=== PATIENT | male | born 1965 | race Native Hawaiian/Other Pacific Islander ===

== ENCOUNTER 2016-05-30 18:14 | Emergency (ER) | payer OTHER ==
[~2016-05-30] VITALS: Ht 170.2 cm; Wt 95.3 kg
[2016-05-30 20:24] VITALS: BP 158/78; TEMP 98.5
== END 2016-05-30 20:24 | disposition home or self-care (01) ==
LOC: ED 18:14
DX: S70.01XA Contusion of right hip, initial encounter (principal); S43.491A Other sprain of right shoulder joint, initial encounter; S40.011A Contusion of right shoulder, initial encounter; S20.211A Contusion of right front wall of thorax, initial encounter; W11.XXXA Fall on and from ladder, initial encounter; Y92.098 Other place in other non-institutional residence as the place of occurrence of the external cause
CPT/HCPCS: 96372; 99283; J2175

== ENCOUNTER 2016-06-28 12:19 | Emergency (ER) | payer OTHER ==
[~2016-06-28] VITALS: Ht 170.2 cm; Wt 93.0 kg
[2016-06-28 12:21] VITALS: TEMP 98
[2016-06-28 12:42] LABS: PLATELET COUNT 287 K/uL (142-355)
[2016-06-28 12:53] LABS: POTASSIUM 3.8 mmol/L (3.6-5.2); SODIUM 133 mmol/L (136-145)
[2016-06-28 13:25] VITALS: BP 123/73
== END 2016-06-28 13:25 | disposition home or self-care (01) ==
LOC: ED 12:19
DX: S20.222A Contusion of left back wall of thorax, initial encounter (principal); S20.221A Contusion of right back wall of thorax, initial encounter; S30.0XXA Contusion of lower back and pelvis, initial encounter; M47.897 Other spondylosis, lumbosacral region; W31.89XA Contact with other specified machinery, initial encounter; Y92.89 Other specified places as the place of occurrence of the external cause
CPT/HCPCS: 36415; 80053; 83880; 85027; 96374; 96375; 99284; J1885; J2175; J2405

== ENCOUNTER 2016-07-05 11:23 | Emergency (ER) | payer OTHER ==
[~2016-07-05] VITALS: Ht 170.2 cm; Wt 93.0 kg
[2016-07-05 11:32] VITALS: TEMP 98.3
[2016-07-05 13:30] VITALS: BP 130/89
== END 2016-07-05 13:30 | disposition home or self-care (01) ==
LOC: ED 11:23
PROC: 2W38XYZ Immobilization of Right Upper Extremity using Other Device (ICD-10-PCS; principal; 2016-07-05)
DX: S46.811A Strain of other muscles, fascia and tendons at shoulder and upper arm level, right arm, initial encounter (principal); S76.011A Strain of muscle, fascia and tendon of right hip, initial encounter; W17.2XXA Fall into hole, initial encounter; Y93.H9 Activity, other involving exterior property and land maintenance, building and construction; Y92.098 Other place in other non-institutional residence as the place of occurrence of the external cause; Y99.8 Other external cause status
CPT/HCPCS: 96372; 99283; J1885

== ENCOUNTER 2016-07-21 09:32 | Outpatient (CLI) | payer OTHER ==
[2016-07-21 09:55] LABS: POTASSIUM 4.6 mmol/L (3.6-5.2); SODIUM 139 mmol/L (136-145)
== END 2016-07-21 19:05 | disposition home or self-care (01) ==
LOC: LABW 09:32
PROVIDERS: Orthopaedic Surgery
DX: Z01.812 Encounter for preprocedural laboratory examination (principal)
CPT/HCPCS: 36415; 80053

== ENCOUNTER 2016-09-24 17:23 | Emergency (ER) | payer OTHER ==
[~2016-09-24] VITALS: Ht 170.2 cm; Wt 96.2 kg
[2016-09-24 19:35] VITALS: BP 134/87; TEMP 98.4
== END 2016-09-24 19:35 | disposition home or self-care (01) ==
LOC: ED 17:23
DX: M54.2 Cervicalgia (principal); R51 Headache
CPT/HCPCS: 99282

== ENCOUNTER 2016-10-09 12:16 | Emergency (ER) | payer OTHER ==
[~2016-10-09] VITALS: Ht 172.7 cm; Wt 95.3 kg
[2016-10-09 13:40] LABS: PLATELET COUNT 284 K/uL (142-355)
[2016-10-09 13:47] LABS: POTASSIUM 3.8 mmol/L (3.6-5.2); SODIUM 137 mmol/L (136-145)
[2016-10-09 16:39] VITALS: BP 138/90; TEMP 98.7
== END 2016-10-09 16:42 | disposition home or self-care (01) ==
LOC: ED 12:16
PROVIDERS: Specialist
DX: N45.1 Epididymitis (principal); R10.13 Epigastric pain
CPT/HCPCS: 80053; 81000; 82150; 83690; 85027; 96374; 96375; 99284; J1170; J2550

== ENCOUNTER 2016-10-23 10:41 | Emergency (ER) | payer OTHER ==
[~2016-10-23] VITALS: Ht 170.2 cm; Wt 95.3 kg
[2016-10-23 11:04] VITALS: TEMP 98.4
[2016-10-23 11:16] LABS: PLATELET COUNT 323 K/uL (142-355)
[2016-10-23 11:33] LABS: POTASSIUM 3.7 mmol/L (3.6-5.2); SODIUM 135 mmol/L (136-145)
[2016-10-23 13:23] VITALS: BP 132/88
== END 2016-10-23 13:24 | disposition home or self-care (01) ==
LOC: ED 10:41
DX: R07.89 Other chest pain (principal); R51 Headache
CPT/HCPCS: 36415; 80053; 82550; 84484; 85027; 93005; 99283; J1885

== ENCOUNTER 2016-11-29 10:36 | Outpatient (CLI) | payer OTHER ==
[2016-11-29 11:17] LABS: POTASSIUM 3.8 mmol/L (3.6-5.2); SODIUM 134 mmol/L (136-145)
[2016-11-29 11:26] LABS: PLATELET COUNT 247 K/uL (142-355)
== END 2016-11-29 19:02 | disposition home or self-care (01) ==
LOC: LABW 10:36
PROVIDERS: Nurse Practitioner Family
DX: Z79.899 Other long term (current) drug therapy (principal); Z51.81 Encounter for therapeutic drug level monitoring; L40.0 Psoriasis vulgaris; R21 Rash and other nonspecific skin eruption
CPT/HCPCS: 36415; 80053; 80074; 85027

== ENCOUNTER 2017-04-15 12:42 | Emergency (ER) | payer OTHER ==
[~2017-04-15] VITALS: Ht 170.2 cm; Wt 93.0 kg
[2017-04-15 13:47] VITALS: TEMP 98
[2017-04-15 15:18] LABS: PLATELET COUNT 322 K/uL (142-355)
[2017-04-15 16:32] LABS: POTASSIUM 3.9 mmol/L (3.6-5.2)
[2017-04-15 18:45] VITALS: BP 148/103
== END 2017-04-15 19:08 | disposition home or self-care (01) ==
LOC: ED 12:42
DX: R22.1 Localized swelling, mass and lump, neck (principal); Z98.890 Other specified postprocedural states
CPT/HCPCS: 36415; 80053; 85027; 96374; 99284; J2930; Q9963

== ENCOUNTER 2017-08-01 16:37 | Outpatient (CLI) | payer OTHER ==
[2017-08-01 17:46] LABS: POTASSIUM 3.5 mmol/L (3.6-5.2)
== END 2017-08-01 20:02 | disposition home or self-care (01) ==
LOC: LABW 16:37
PROVIDERS: Family Medicine
DX: I10 Essential (primary) hypertension (principal); E78.4 Other hyperlipidemia; I25.10 Atherosclerotic heart disease of native coronary artery without angina pectoris; E11.9 Type 2 diabetes mellitus without complications; Z79.899 Other long term (current) drug therapy; Z51.81 Encounter for therapeutic drug level monitoring
CPT/HCPCS: 36415; 80053; 80061

== ENCOUNTER 2017-10-24 20:20 | Emergency (ER) | payer OTHER ==
[2017-10-24] MEDS ORDERED: CLONAZEP ODT0.25 MG PO (20:53)
[2017-10-24] MEDS ORDERED: AMBIEN5 MG PO (20:54)
[2017-10-24] MEDS ORDERED: METF100038 PO (20:55)
[2017-10-24] MEDS ORDERED: PROZAC10 MG PO (20:55)
[2017-10-24] MEDS ORDERED: AMLO2.5T PO (20:55)
[2017-10-24 22:39] LABS: PLATELET COUNT 261 K/uL (142-355)
[2017-10-24 22:47] LABS: POTASSIUM 3.5 mmol/L (3.6-5.2)
[2017-10-25 07:52] VITALS: BP 143/88; TEMP 98
== END 2017-10-25 09:50 | disposition short-term general hospital (02) ==
LOC: ED 20:20
PROVIDERS: Internal Medicine
DX: R45.851 Suicidal ideations (principal)
CPT/HCPCS: 36415; 80053; 80307; 80320; 80329; 81000; 85027; 93005; 96374; 99285; J3490

== ENCOUNTER 2018-01-27 13:03 | Emergency (ER) | payer OTHER ==
[~2018-01-27] VITALS: Ht 170.2 cm; Wt 93.0 kg
[~2018-01-27 13:03] MED LIST: AMBIEN5 MG PO; AMLO2.5T PO; CLONAZEP ODT0.25 MG PO; METF100038 PO; PROZAC10 MG PO
[2018-01-27 14:05] LABS: PLATELET COUNT 312 K/uL (142-355)
[2018-01-27 14:15] LABS: POTASSIUM 3.9 mmol/L (3.6-5.2)
[2018-01-27 16:34] VITALS: BP 145/84; TEMP 98
== END 2018-01-27 16:36 | disposition home or self-care (01) ==
LOC: ED 13:03
DX: N20.0 Calculus of kidney (principal); N39.0 Urinary tract infection, site not specified
CPT/HCPCS: 36415; 80053; 81000; 83605; 84484; 85027; 87086; 87088; 96365; 96374; 96375; 99284; J1170; J2175; J2405; J2550; J7120

== ENCOUNTER 2018-04-12 04:59 | Emergency (ER) | payer OTHER ==
[~2018-04-12] VITALS: Ht 170.2 cm; Wt 93.0 kg
[2018-04-12 05:10] VITALS: TEMP 98.1
[2018-04-12 05:29] LABS: PLATELET COUNT 316 K/uL (142-355)
[2018-04-12 05:41] LABS: POTASSIUM 3.5 mmol/L (3.6-5.2)
[2018-04-12 07:52] VITALS: BP 128/89
== END 2018-04-12 07:53 | disposition home or self-care (01) ==
LOC: ED 04:59
PROVIDERS: Emergency Medicine
DX: N20.1 Calculus of ureter (principal)
CPT/HCPCS: 36415; 80053; 81000; 85027; 96365; 96374; 99284; J2175; J2405; J3490

== ENCOUNTER 2018-05-10 12:35 | Outpatient (CLI) | payer OTHER ==
[2018-05-10 13:07] LABS: PLATELET COUNT 277 K/uL (142-355)
[2018-05-10 13:26] LABS: POTASSIUM 3.8 mmol/L (3.6-5.2)
== END 2018-05-10 20:38 | disposition home or self-care (01) ==
LOC: LABW 12:35
PROVIDERS: Nurse Practitioner Family
DX: Z79.899 Other long term (current) drug therapy (principal)
CPT/HCPCS: 36415; 80053; 80074; 85027; 86480

== ENCOUNTER 2018-09-21 13:31 | Outpatient (CLI) | payer OTHER ==
[2018-09-21 13:47] LABS: PLATELET COUNT 309 K/uL (142-355)
[2018-09-21 14:16] LABS: POTASSIUM 4.1 mmol/L (3.6-5.2)
== END 2018-09-21 19:10 | disposition home or self-care (01) ==
LOC: LABW 13:31
PROVIDERS: Physician Assistant Medical
DX: M75.21 Bicipital tendinitis, right shoulder (principal)
CPT/HCPCS: 36415; 80053; 85027; 85651; 86038; 86140

== ENCOUNTER 2018-12-21 14:30 | Outpatient (CLI) | payer OTHER ==
[2018-12-21 14:49] LABS: PLATELET COUNT 311 K/uL (142-355)
[2018-12-21 14:58] LABS: POTASSIUM 4.5 mmol/L (3.6-5.2)
== END 2018-12-21 22:27 | disposition home or self-care (01) ==
LOC: LABW 14:30
PROVIDERS: Nurse Practitioner Family
DX: L40.0 Psoriasis vulgaris (principal); Z79.899 Other long term (current) drug therapy
CPT/HCPCS: 36415; 80053; 85027

== ENCOUNTER 2019-05-07 14:05 | Outpatient (CLI) | payer OTHER | END 2019-05-07 20:12 | disposition home or self-care (01) | LOC: RAD 14:05 | DX: Z79.899 Other long term (current) drug therapy (principal) ==

== ENCOUNTER 2020-02-10 12:40 | Outpatient (CLI) | payer OTHER ==
[2020-02-10 13:02] LABS: PLATELET COUNT 285 K/uL (142-355)
[2020-02-10 13:09] LABS: POTASSIUM 4.7 mmol/L (3.6-5.2)
== END 2020-02-10 23:20 | disposition home or self-care (01) ==
LOC: LABW 12:40
PROVIDERS: ATTEND Nurse Practitioner Family
DX: Z79.899 Other long term (current) drug therapy (principal); L40.0 Psoriasis vulgaris
CPT/HCPCS: 36415; 80053; 85027

== ENCOUNTER 2020-07-07 08:54 | Outpatient (CLI) | payer OTHER ==
[2020-07-07 09:23] LABS: POTASSIUM 4.7 mmol/L (3.6-5.2)
[2020-07-07 09:25] LABS: PLATELET COUNT 301 K/uL (142-355)
== END 2020-07-07 21:07 | disposition home or self-care (01) ==
LOC: LABW 08:54
PROVIDERS: ATTEND Nurse Practitioner Family
DX: Z79.899 Other long term (current) drug therapy (principal); L40.0 Psoriasis vulgaris
CPT/HCPCS: 36415; 80053; 80074; 85027; 86480

== ENCOUNTER 2020-11-17 13:09 | Outpatient (CLI) | payer OTHER ==
[2020-11-17 13:27] LABS: PLATELET COUNT 266 K/uL (142-355)
[2020-11-17 13:37] LABS: POTASSIUM 4.3 mmol/L (3.6-5.2)
== END 2020-11-17 22:15 | disposition home or self-care (01) ==
LOC: LABW 13:09
PROVIDERS: ATTEND Nurse Practitioner Family
DX: L40.0 Psoriasis vulgaris (principal); L81.0 Postinflammatory hyperpigmentation; Z79.899 Other long term (current) drug therapy
CPT/HCPCS: 36415; 80053; 85027

== ENCOUNTER 2021-03-12 08:46 | Emergency (ER) | payer OTHER ==
[~2021-03-12] VITALS: Ht 170.2 cm; Wt 93.0 kg
[2021-03-12 08:57] VITALS: TEMP 97.1
[2021-03-12 09:53] VITALS: BP 156/88
== END 2021-03-12 09:54 | disposition home or self-care (01) ==
LOC: ED 08:46
DX: L27.0 Generalized skin eruption due to drugs and medicaments taken internally (principal); L50.8 Other urticaria; T50.995A Adverse effect of other drugs, medicaments and biological substances, initial encounter; Y92.89 Other specified places as the place of occurrence of the external cause
CPT/HCPCS: 96372; 99283; J2930; J3410

== ENCOUNTER 2021-09-07 09:21 | Outpatient (CLI) | payer OTHER | END 2021-09-07 18:57 | disposition home or self-care (01) | LOC: RAD 09:21 | PROVIDERS: ATTEND Physician Assistant | DX: M79.672 Pain in left foot (principal); M25.532 Pain in left wrist ==

== ENCOUNTER 2021-09-14 03:22 | Emergency (ER) | payer OTHER ==
[~2021-09-14] VITALS: Ht 170.2 cm; Wt 93.0 kg
[2021-09-14 04:00] LABS: PLATELET COUNT 322 K/uL (142-355)
[2021-09-14 04:05] LABS: POTASSIUM 4.2 mmol/L (3.6-5.2)
[2021-09-14 06:15] VITALS: BP 146/83; TEMP 98.7
== END 2021-09-14 06:15 | disposition home or self-care (01) ==
LOC: ED 03:22
PROVIDERS: Emergency Medicine Emergency Medical Services
DX: R10.31 Right lower quadrant pain (principal)
CPT/HCPCS: 36415; 80053; 81002; 82150; 83690; 85027; 96360; 96374; 96375; 99283; J1170; J1815; J2270; J2405; J3490; Q9963

== ENCOUNTER 2021-10-15 12:57 | Outpatient (CLI) | payer OTHER | END 2021-10-15 19:05 | disposition home or self-care (01) | LOC: MRI 12:57 | PROVIDERS: ATTEND Physician Assistant | DX: M25.532 Pain in left wrist (principal) ==

== ENCOUNTER 2021-12-07 09:27 | Outpatient (CLI) | payer OTHER ==
[2021-12-07 09:42] LABS: PLATELET COUNT 305 K/uL (142-355)
[2021-12-07 10:41] LABS: POTASSIUM 4.2 mmol/L (3.6-5.2)
== END 2021-12-07 19:28 | disposition home or self-care (01) ==
LOC: LABW 09:27
PROVIDERS: ATTEND Nurse Practitioner Family
DX: Z79.899 Other long term (current) drug therapy (principal); L40.0 Psoriasis vulgaris
CPT/HCPCS: 36415; 80053; 85027

== ENCOUNTER 2022-06-09 15:36 | Outpatient (CLI) | payer OTHER ==
[2022-06-09 16:11] LABS: PLATELET COUNT 292 K/uL (142-355)
== END 2022-06-09 19:39 | disposition home or self-care (01) ==
LOC: LABW 15:36
PROVIDERS: ATTEND Nurse Practitioner Family
DX: Z79.899 Other long term (current) drug therapy (principal); L40.0 Psoriasis vulgaris; R53.82 Chronic fatigue, unspecified
CPT/HCPCS: 36415; 80053; 80074; 85027; 86480